=== PATIENT | male | born 1940 | race Caucasian/White ===

== ENCOUNTER 2022-04-21 02:56 | Inpatient (IN) | payer MEDICARE, SELFPAY ==
[2022-04-21] VITALS (15 sets, daily range): BP systolic 131–194; BP diastolic 44–99; PULSE 59–94; RESP 16–20; TEMP 36.1–37.9; O2SAT 88–100; BMI 27.5
--- NOTE | ~2022-04-21 | XR_ITS ---
EXAMINATION: XR chest 1V portable DATE: 04/21/2022 03:53 INDICATION: Weakness. TECHNIQUE: A single frontal view of the chest was obtained. COMPARISON: None. FINDINGS: Calcified bilateral lung nodules and calcified hilar and mediastinal lymph nodes are consis tent with old granulomatous disease. There are airspace opacities in right lower lung zone. No pleura l effusion or pneumothorax. The heart size is normal. There is a right internal jugular port with tip in superior vena cava. There are surgical clips in left neck. IMPRESSION: 1. Airspace opacities in right lower lung zone, consistent with atelectasis versus pneumonia. Reviewed, dictated and finalized at location A. IMPRESSION: 1. Airspace opacities in right lower lung zone, consistent with atelectasis dianne joshua pneumonia.
--- NOTE | 2022-04-21 02:59 | ECG_ITS ---
Measurements Intervals [place] Rate: 93 P: 62 IL: 207 QRS: 27 QRSD: 102 T: 81 QT: 325 QTc: 406 Interpretive Statements SINUS RHYTHM NONSPECIFIC ST & T-WAVE ABNORMALITY- LAT/HIGH LAT LEADS BASELINE ARTIFACT- I, II, III, AVR, AVL, AVF, V1-V6 BORDERLINE ECG NO PREVIOUS ECG AVAILABLE FOR COMPARISON Electronically Signed On 04-21-2022 8:31:26 CDT by Nolan Nobles D.O.
[2022-04-21 03:45] LABS: Basophils Percent Auto 0.3 % (0.2-1.2); Eosinophils Absolute Auto 0.1 K/mm3 (0-0.3); Eosinophils Percent Auto 0.7 % (0-4.4); Hematocrit 36.8 % (42.0-52.0); Hemoglobin 12.3 g/dL (14.0-18.0); Immature Granulocyte Absolute 0.03 K/mm3 (0.00-0.031); Immature Granulocyte Percent A 0.3 % (0-0.5); Lymphocytes Absolute Auto 0.69 K/mm3 (0.9-3.2); Lymphocytes Percent Auto 7.3 % (18.3-44.2); Mean Corpuscular HGB Conc 33.4 g/dl (32-36); Mean Corpuscular Hemoglobin 30.5 pg (26-34); Mean Corpuscular Volume 91.3 fl (80-100); Monocytes Absolute Auto 1.2 K/mm3 (0.1-0.6); Monocytes Percent Auto 12.9 % (2.6-8.5); Neutrophils Absolute Auto 7.4 K/mm3 (1.3-6.7); Neutrophils Percent Auto 78.5 % (45.5-73.1); Platelet Count Result 164 k/mm3 (150-375); Red Blood Count 4.03 M/mm3 (4.6-6.20); White Blood Count 9.4 K/mm3 (4.5-10.0)
[2022-04-21] MEDS: SODIUM CHLORIDE 0.9% IV 1,000 ML 999 ML IV CONT (03:48)
[2022-04-21 03:56] LABS: INR 1.1; Prothrombin Time 13.7 Seconds (11.1-14.7)
[2022-04-21 03:57] LABS: Partial Thromboplastin Time 28.2 SECONDS (22.3-36.8)
[2022-04-21 03:59] LABS: Alanine Aminotransferase 16 U/L (6-50); Alkaline Phosphatase 143 U/L (38-126); Anion Gap 9 mmol/L (8-16); Aspartate Amino Transferase 28 U/L (17-59); Bilirubin,Total 0.6 mg/dL (0.2-1.3); Blood Urea Nitrogen 34 mg/dL (9-20); Carbon Dioxide 27 mmol/L (22-30); Chloride 103 mmol/L (98-107); Estimated CRCL calculation 32 ml/min; Estimated Glomerular Filt Rate 42; Glucose 136 mg/dL (65-110); Potassium 4.6 mmol/L (3.4-5.0); Sodium 139 mmol/L (137-145)
[2022-04-21 04:19] LABS: Add Urine Microscopic? YES; Appearance Urine Clear (Clear); Bilirubin Urine Negative (Negative); Blood Urine 2+ (Negative); Color Urine Yellow (Yellow); Glucose Urine UA Negative (Negative); Ketones Urine 1+ mg/dL (Negative); Leukocyte Esterase Ur Negative LEU/UL (Negative); Nitrate Urine Negative (Negative); Protein Urine 3+ mg/dL (Negative)
[2022-04-21 04:22] LABS: SARS-CoV-2 RNA PCR Positive
--- NOTE | 2022-04-21 05:11 | PC.NURSE ---
Cyn Curry, granddaughter, would like to be notified with updates. # [phone]
--- NOTE | 2022-04-21 05:28 | ED.GENADULT ---
HPI - General Adult General Chief complaint: Altered Mental Status Stated complaint: weakness, confusion Time Seen by Provider: 04/21/22 03:03 History of Present Illness HPI narrative: Patient is an 81-year-old male who presents the ER with increased weakness and difficulty ambulating. Patient has dementia and lives at home with his family. Family reports he is not been able to walk like he typically can today and that he has increased tremors in his arms and legs and they do not feel like he can pick his legs up to walk. He has had slightly increased confusion but has dementia at baseline. No new runny nose or sore throat or cough. Family reports no infectious contacts. Related Data Allergies Allergy/AdvReac Type Severity Reaction Status Date / Time prochlorperazine Allergy Unknown Verified 04/21/22 03:16 Tetanus Vaccines and Toxoid Allergy Unknown Verified 04/21/22 02:58 Review of Systems Review of Systems: ROS unobtainable: Yes unobtainable due to mental status PMFSH Past Medical History Medical History (Updated 04/21/22 @ 05:41 by Jeffrey Marie MD) Bladder cancer Dementia Diabetes Giant cell arteritis Hyperlipidemia Hypertension Surgical History Surgical History (Updated 04/21/22 @ 05:41 by Jeffrey Marie MD) H/O cystoscopy Social History Social History (Updated 04/21/22 @ 05:40 by Jeffrey Marie MD) Smoking status: Former smoker Exam Narrative: GENERAL: Chronically ill-appearing, well-nourished, and in no acute distress. HEAD: Normocephalic, atraumatic. EYES: PERRL and EOMI. ENT: Mucous membranes moist. CHEST: Clear to auscultation. No respiratory distress. HEART: Regular rate and rhythm. Normal peripheral pulses. ABDOMEN: Soft, nontender, nondistended. EXTREMITIES: Normal range of motion. No edema. SKIN: Warm, dry, no rash. NEURO: No upper or lower extremity drift. Normal [id number] testing. Upper and lower extremity tremor. Alert and oriented x2. Course Course Emergency Course: Patient and family informed of results. Decadron for hypoxia. Admit to hospitalist service. Vital Signs Vital signs: Vital Signs Temperature 100.3 F H 04/21/22 03:00 Pulse Rate 94 04/21/22 03:00 Respiratory Rate 16 04/21/22 03:00 Blood Pressure 194/59 H 04/21/22 03:00 Pulse Oximetry 98 04/21/22 03:00 Oxygen Delivery Room Air 04/21/22 03:00 Temperature 100.3 F H 04/21/22 03:00 Pulse Rate 80 04/21/22 05:47 Respiratory Rate 20 04/21/22 05:47 Blood Pressure 156/62 H 04/21/22 05:47 Pulse Oximetry 97 04/21/22 05:47 Oxygen Delivery Nasal Cannula 04/21/22 05:07 Oxygen Flow Rate 2 04/21/22 05:07 Medical Decision Making Vital Signs Vital Signs: Vital Signs Temperature 100.3 F H 04/21/22 03:00 Pulse Rate 94 04/21/22 03:00 Respiratory Rate 16 04/21/22 03:00 Blood Pressure 194/59 H 04/21/22 03:00 Pulse Oximetry 98 04/21/22 03:00 Oxygen Delivery Room Air 04/21/22 03:00 Temperature 100.3 F H 04/21/22 03:00 Pulse Rate 80 04/21/22 05:47 Respiratory Rate 20 04/21/22 05:47 Blood Pressure 156/62 H 04/21/22 05:47 Pulse Oximetry 97 04/21/22 05:47 Oxygen Delivery Nasal Cannula 04/21/22 05:07 Oxygen Flow Rate 2 04/21/22 05:07 Lab Data Result diagrams: 04/21/22 03:37 04/21/22 03:37 Labs: Lab Results 04/21/22 04/21/22 04/21/22 Range/Units 03:37 03:37 03:37 WBC 9.4 (4.5-10.0) K/mm3 RBC 4.03 L (4.6-6.20) M/mm3 Hgb 12.3 L (14.0-18.0) g/dL Hct 36.8 L (42.0-52.0) % MCV 91.3 (80-100) fl MCH 30.5 (26-34) pg MCHC 33.4 (32-36) g/dl RDW 13.0 (11.5-14.5) % Plt Count 164 (150-375) k/mm3 MPV 11.0 H (7.4-10.4) fl Immature Gran % (Auto) 0.3 (0-0.5) % Neut % (Auto) 78.5 H (45.5-73.1) % Lymph % (Auto) 7.3 L (18.3-44.2) % [place] % (Auto) 12.9 H (2.6-8.5) % Eos % (Auto) 0.7 (0-4.4) % Baso % (Auto) 0.3 (0.2-1.
--- NOTE | 2022-04-21 08:05 | ADMGEN ---
This patient, Robert Finnegan, was admitted to Medical Room 245-. Patient/family oriented to hospital policies and general routines including ID bracelet, bed and alarms, visiting hours, pain management, procedures, bathroom and other care routines, personal items, smoking policy, room service/diet, and visiting hours. Information on how to activate the Rapid Response Team has been discussed. Patient/Family are encouraged to report perceived risks to care and to ask questions if they do not understand what they are told or what they should do.
[2022-04-21] MEDS: REMDESIVIR 200 MG/NS 250 ML 200 MG/250 ML BAG 250 MG IVPB (09:13)
--- NOTE | 2022-04-21 11:01 | PM.IMHP ---
H&P: HPI History of Present Illness Date/Time: 04/21/22 11:01 Chief Complaint: raj is an 81-year-old male who presents the ER with increased weakness and difficulty ambulating.? Patient has dementia and lives at home with his family.? Family reports he is not been able to walk like he typically can today and that he has increased tremors in his arms and legs and they do not feel like he can pick his legs up to walk.? He has had slightly increased confusion but has dementia at baseline.? No new runny nose or sore throat or cough.? Family reports no infectious contacts. [facility] Past Medical History Medical History (Updated 04/21/22 @ 11:03 by Madhav Ball MD) Bladder cancer Dementia Diabetes Giant cell arteritis Hyperlipidemia Hypertension Surgical History Surgical History H/O cystoscopy Family History Family History Mother Cancer Sibling CKD (chronic kidney disease) Father Emphysema lung Social History Social History Smoking status: Former smoker Alcohol intake: former Substance use: never Substance use type: does not use Spiritual care concerns: No Meds Home Medications and Allergies Home Medications Medication Instructions Recorded Confirmed Type amlodipine 5 mg tablet 5 mg PO DAILY 04/21/22 04/21/22 History atorvastatin 40 mg tablet 40 mg PO HS 04/21/22 04/21/22 History donepezil 10 mg tablet 10 mg PO HS 04/21/22 04/21/22 History enalapril maleate 20 mg tablet 20 mg PO DAILY 04/21/22 04/21/22 History hydrochlorothiazide 25 mg tablet 25 mg PO DAILY 04/21/22 04/21/22 History memantine 10 mg tablet 10 mg PO BID 04/21/22 04/21/22 History metformin 750 mg tablet,extended 750 mg PO DAILY 04/21/22 04/21/22 History release 24 hr pregabalin 75 mg capsule 75 mg PO QAM AND QHS 04/21/22 04/21/22 History umeclidinium 62.5 mcg/actuation 1 inh inhalation BID 04/21/22 04/21/22 History blister powder for inhalation (Incruse Ellipta) Allergies Allergy/AdvReac Type Severity Reaction Status Date / Time prochlorperazine Allergy Unknown Verified 04/21/22 08:14 Tetanus Vaccines and Toxoid Allergy Unknown Verified 04/21/22 08:14 Vital Signs Vital Signs - 24 hr 04/21/22 03:00 04/21/22 03:18 04/21/22 04:47 Temperature 100.3 F H Pulse Rate 94 85 Respiratory Rate 16 20 Blood Pressure 194/59 H 172/79 H 131/99 H Pulse Oximetry 98 Oxygen Delivery Room Air Oxygen Flow Rate 04/21/22 05:02 04/21/22 05:07 04/21/22 05:16 Temperature Pulse Rate 86 Respiratory Rate 18 Blood Pressure 155/58 H Pulse Oximetry 88 L 92 96 Oxygen Delivery Nasal Cannula Oxygen Flow Rate 2 04/21/22 05:47 04/21/22 07:54 04/21/22 08:38 Temperature Pulse Rate 80 77 Respiratory Rate 20 18 18 Blood Pressure 156/62 H 158/46 H Pulse Oximetry 97 92 92 Oxygen Delivery Nasal Cannula Oxygen Flow Rate 2 04/21/22 10:47 Temperature 97.1 F L Pulse Rate 65 Respiratory Rate 18 Blood Pressure 158/49 H Pulse Oximetry 96 Oxygen Delivery Oxygen Flow Rate H&P: Results Labs Labs: Short CBC 04/21/22 Range/Units 03:37 WBC 9.4 (4.5-10.0) K/mm3 Hgb 12.3 L (14.0-18.0) g/dL Hct 36.8 L (42.0-52.0) % Plt Count 164 (150-375) k/mm3 BMP 04/21/22 03:37 Sodium 139 Potassium 4.6 Chloride 103 Carbon Dioxide 27 BUN 34 H Creatinine 1.60 H Glucose 136 H Calcium 9.0 Liver Function 04/21/22 Range/Units 03:37 Total Bilirubin 0.6 (0.2-1.3) mg/dL AST 28 (17-59) U/L ALT 16 (6-50) U/L Alkaline Phosphatase 143 H (38-126) U/L Albumin 4.0 (3.5-5.1) g/dL Urine 04/21/22 Range/Units 04:11 Urine Color Yellow (Yellow) Urine Appearance Clear (Clear) Urine pH 6.0 (5.0-9.0) Ur Specific [place] 1.020 (1.001-1.035) Urine Protein 3+ H (
[2022-04-21] MEDS: hydroCHLOROthiazide 25 MG TABLET PO (11:44)
[2022-04-21] MEDS: PREGABALIN (*CRX) 75 MG CAPSULE PO ×2 (11:44→21:23)
[2022-04-21] MEDS: MEMANTINE 10 MG TABLET PO ×2 (11:44→21:23)
[2022-04-21] MEDS: metFORMIN HCL XR 500 MG TAB.SR.24H PO (11:46)
[2022-04-21] MEDS: amLODIPine BESYLATE 5 MG TABLET PO (11:47)
[2022-04-21] MEDS: ENALAPRIL MALEATE 10 MG TABLET 20 MG PO (11:47)
[2022-04-21 12:01] LABS: Glucose Point of Care 240 mg/dl (65-105)
[2022-04-21] MEDS: INSULIN ASPART (*BKC) 100 UNITS/ML SUB-Q ×2 (12:08→16:51)
[2022-04-21] MEDS: UMECLIDINIUM BROMIDE 62.5 MCG ELLIPTA 1 PUFF INHALATION (12:20)
[2022-04-21 16:50] LABS: Glucose Point of Care 203 mg/dl (65-105)
[2022-04-21 19:55] LABS: Glucose Point of Care 193 mg/dl (65-105)
[2022-04-21] MEDS: DONEPEZIL HCL 10 MG TABLET PO (21:23)
[2022-04-21] MEDS: ATORVASTATIN 40 MG TABLET PO (21:23)
[2022-04-22] VITALS (8 sets, daily range): BP systolic 131–151; BP diastolic 49–69; PULSE 54–97; RESP 16–20; TEMP 36.3–36.6; O2SAT 90–100
[2022-04-22 05:23] LABS: Basophils Percent Auto 0.2 % (0.2-1.2); Hematocrit 32.1 % (42.0-52.0); Hemoglobin 10.7 g/dL (14.0-18.0); Immature Granulocyte Absolute 0.02 K/mm3 (0.00-0.031); Immature Granulocyte Percent A 0.3 % (0-0.5); Lymphocytes Absolute Auto 0.68 K/mm3 (0.9-3.2); Lymphocytes Percent Auto 10.7 % (18.3-44.2); Mean Corpuscular HGB Conc 33.3 g/dl (32-36); Mean Corpuscular Hemoglobin 30.3 pg (26-34); Mean Corpuscular Volume 90.9 fl (80-100); Mean Platelet Volume 11.1 fl (7.4-10.4); Monocytes Percent Auto 15.8 % (2.6-8.5); Neutrophils Absolute Auto 4.6 K/mm3 (1.3-6.7); Platelet Count Result 155 k/mm3 (150-375); Red Blood Count 3.53 M/mm3 (4.6-6.20); Red Cell Distribution Width 12.7 % (11.5-14.5); White Blood Count 6.3 K/mm3 (4.5-10.0)
[2022-04-22 05:34] LABS: INR 1.1; Prothrombin Time 13.9 Seconds (11.1-14.7)
[2022-04-22 05:39] LABS: Alanine Aminotransferase 13 U/L (6-50); Anion Gap 5 mmol/L (8-16); Blood Urea Nitrogen 38 mg/dL (9-20); Calcium 7.9 mg/dL (8.4-10.2); Carbon Dioxide 26 mmol/L (22-30); Chloride 103 mmol/L (98-107); Estimated CRCL calculation 34 ml/min; Estimated Glomerular Filt Rate 45; Glucose 155 mg/dL (65-110); Potassium 4.1 mmol/L (3.4-5.0); Sodium 134 mmol/L (137-145)
[2022-04-22] MEDS: ENALAPRIL MALEATE 10 MG TABLET 20 MG PO (08:19)
[2022-04-22] MEDS: hydroCHLOROthiazide 25 MG TABLET PO (08:19)
[2022-04-22] MEDS: PREGABALIN (*CRX) 75 MG CAPSULE PO ×2 (08:19→21:03)
[2022-04-22] MEDS: amLODIPine BESYLATE 5 MG TABLET PO (08:19)
[2022-04-22] MEDS: metFORMIN HCL XR 500 MG TAB.SR.24H PO (08:19)
[2022-04-22] MEDS: MEMANTINE 10 MG TABLET PO ×2 (08:19→21:03)
[2022-04-22] MEDS: UMECLIDINIUM BROMIDE 62.5 MCG ELLIPTA 1 PUFF INHALATION (08:26)
[2022-04-22 08:29] LABS: WBC Urine 0-3 /hpf (0-3)
[2022-04-22 08:30] LABS: Bacteria Urine 1+ /hpf; Mucus Urine Moderate /lpf
[2022-04-22 08:31] LABS: Glucose Point of Care 116 mg/dl (65-105)
[2022-04-22] MEDS: REMDESIVIR 100 MG/NS 250 ML 100 MG/250 ML BAG 250 MG IVPB (09:01)
--- NOTE | 2022-04-22 11:25 | PCOTNOTE ---
Attempted to see patient however patient is asleep at this time.
[2022-04-22] MEDS: INSULIN ASPART (*BKC) 100 UNITS/ML SUB-Q ×2 (12:08→17:17)
[2022-04-22 12:11] LABS: Glucose Point of Care 275 mg/dl (65-105)
--- NOTE | 2022-04-22 13:42 | PM.IMPN ---
Progress Note: A&P Assessment and Plan (1) COVID: Code(s): U07.1 - COVID-19 Status: Acute Assessment and Plan: Continue oxygen. Continue dexamethasone and remdesivir. Relatively asymptomatic 03/22/2022 interval history: 81-year-old male was brought by family the complaint of weakness and tremor and difficulty ambulation patient is found to have a COVID-19, is being treated dexamethasone and remdesivir, upon arrival patient was requiring 2L of oxygen currently on room air, patient tremor has resolved, his clinically stage will have a PT OT evaluate the patient, patient will benefit with physical therapy rehab. (2) Hypoxia: Code(s): R09.02 - Hypoxemia Status: Acute Assessment and Plan: Mild hypoxia secondary to above (3) Hypertension: Code(s): I10 - Essential (primary) hypertension Status: Acute Assessment and Plan: Continue home meds (4) Alzheimer's dementia: Code(s): G30.9 - Alzheimer's disease, unspecified; F02.80 - Dementia in other diseases classified elsewhere without behavioral disturbance Status: Acute Assessment and Plan: Continue home meds (5) Diabetes: Code(s): E11.9 - Type 2 diabetes mellitus without complications Status: Acute Assessment and Plan: Monitor blood sugar, sliding scale insulin (6) Hyperlipidemia: Code(s): E78.5 - Hyperlipidemia, unspecified Status: Acute Subjective Date/time seen: 04/22/22 13:42 HPI-Patient is an 81-year-old male who presents the ER with increased weakness and difficulty ambulating.? Patient has dementia and lives at home with his family.? Family reports he is not been able to walk like he typically can today and that he has increased tremors in his arms and legs and they do not feel like he can pick his legs up to walk.? He has had slightly increased confusion but has dementia at baseline.? No new runny nose or sore throat or cough.? Family reports no infectious contacts. 03/22/2022 interval history: 81-year-old male was brought by family the complaint of weakness and tremor and difficulty ambulation patient is found to have a COVID-19, is being treated dexamethasone and remdesivir, upon arrival patient was requiring 2L of oxygen currently on room air, patient tremor has resolved, his clinically stage will have a PT OT evaluate the patient, patient will benefit with physical therapy rehab Review of Systems Review of Systems: as per HPI Exam Narrative: elderly frail Patient is comfortable, NAD HEENT: eyes are clear and none icteric LUNGS: normal respiratory effort ABD: not distended Lower extremities: no edema SKIN: nonjaundiced Neuro: grossly intact. Objective Data Vital Signs Vital Signs: Vital Signs - 24 hr 04/21/22 14:15 04/21/22 18:34 04/21/22 20:27 Temperature 97.0 F L 97.3 F L 98.5 F Pulse Rate 63 59 L 60 Respiratory Rate 18 18 20 Blood Pressure 146/71 H 146/45 H 153/44 H Pulse Oximetry 96 96 100 Oxygen Delivery Oxygen Flow Rate 04/21/22 21:00 04/22/22 00:26 04/22/22 05:57 Temperature 97.6 F 97.6 F Pulse Rate 58 L 60 Respiratory Rate 20 20 Blood Pressure 143/52 H 151/49 H Pulse Oximetry 100 97 94 Oxygen Delivery Nasal Cannula Oxygen Flow Rate 1 04/22/22 07:22 04/22/22 08:27 04/22/22 08:25 Temperature Pulse Rate Respiratory Rate Blood Pressure Pulse Oximetry 90 Oxygen Delivery Room Air Room Air Room Air Oxygen Flow Rate 04/22/22 10:08 Temperature 97.8 F Pulse Rate 97 Respiratory Rate 18 Blood Pressure 141/62 H Pulse Oximetry 100 Oxygen Delivery Oxygen Flow Rate Intake/Output Intake/Output: Intake & Output 04/19/22 04/20/22 04/21/22 04/22/22 23:59 23:59 23:59 23:59 Intake Total 2630 970 Output Total 900 1075 Balance 1730 -105 Meds/Results Medications: Active Medications Generic Name Dose Route Start Last Admin Trade Name Freq PRN Reason Stop Dose Ad
[2022-04-22 17:19] LABS: Glucose Point of Care 219 mg/dl (65-105)
[2022-04-22] MEDS: DONEPEZIL HCL 10 MG TABLET PO (21:03)
[2022-04-22] MEDS: ATORVASTATIN 40 MG TABLET PO (21:03)
[2022-04-22 21:24] LABS: Glucose Point of Care 205 mg/dl (65-105)
[2022-04-23 00:30] VITALS: BP 158/58; PULSE 56; RESP 16; TEMP 36.4; O2SAT 94
[2022-04-23 05:22] LABS: Alanine Aminotransferase 16 U/L (6-50); Estimated CRCL calculation 37 ml/min; Estimated Glomerular Filt Rate 49
[2022-04-23 05:32] LABS: INR 1.1; Prothrombin Time 13.9 Seconds (11.1-14.7)
[2022-04-23 06:00] VITALS: BP 136/50; PULSE 56; RESP 18; TEMP 36.6; O2SAT 94
[2022-04-23 08:14] LABS: Glucose Point of Care 125 mg/dl (65-105)
[2022-04-23] MEDS: UMECLIDINIUM BROMIDE 62.5 MCG ELLIPTA 1 PUFF INHALATION (08:27)
[2022-04-23 08:28] VITALS: O2SAT 96
[2022-04-23] MEDS: PREGABALIN (*CRX) 75 MG CAPSULE PO (09:25)
[2022-04-23] MEDS: metFORMIN HCL XR 500 MG TAB.SR.24H PO (09:26)
[2022-04-23] MEDS: amLODIPine BESYLATE 5 MG TABLET PO (09:26)
[2022-04-23] MEDS: MEMANTINE 10 MG TABLET PO (09:26)
[2022-04-23] MEDS: ENALAPRIL MALEATE 10 MG TABLET 20 MG PO (09:33)
[2022-04-23] MEDS: REMDESIVIR 100 MG/NS 250 ML 100 MG/250 ML BAG 250 MG IVPB (09:34)
[2022-04-23] MEDS: hydroCHLOROthiazide 25 MG TABLET PO (09:34)
[2022-04-23 10:00] VITALS: BP 138/58; PULSE 56; RESP 18; TEMP 36.4; O2SAT 97
--- NOTE | 2022-04-23 11:30 | PM.DS ---
DS: Admitting Diagnosis Discharge Date April 23, 2022 Admitting Diagnosis COVID pneumonia DS: Discharge Diagnosis Discharge Diagnosis (1) COVID: Code(s): U07.1 - COVID-19 Status: Acute Assessment and Plan: patient did well on dexamethasone and remdesivir. No longer requiring oxygen. (2) Hypoxia: Code(s): R09.02 - Hypoxemia Status: Acute Assessment and Plan: No longer requiring oxygen (3) Hypertension: Code(s): I10 - Essential (primary) hypertension Status: Acute Assessment and Plan: Continue home meds (4) Alzheimer's dementia: Code(s): G30.9 - Alzheimer's disease, unspecified; F02.80 - Dementia in other diseases classified elsewhere without behavioral disturbance Status: Acute Assessment and Plan: Continue home meds (5) Diabetes: Code(s): E11.9 - Type 2 diabetes mellitus without complications Status: Acute Assessment and Plan: Monitor blood sugar, sliding scale insulin (6) Hyperlipidemia: Code(s): E78.5 - Hyperlipidemia, unspecified Status: Acute DS: Summary Hospital Course Hospital Course: patient is a 81-year-old male who came in with shortness of breath and hypoxia was found have COVID pneumonia. He was started on dexamethasone remdesivir and did well. He was initially on supplemental oxygen but over the last 24hours she has not required any oxygen. Patient can be discharged home on dexamethasone. He needs to follow up with his primary care physician in 1-2 weeks. Time Spent with Patient Time attestation: Total time spent providing and/or coordinating discharge services: Exam Narrative: elderly frail Patient is comfortable, NAD HEENT: eyes are clear and none icteric LUNGS: normal respiratory effort ABD: not distended Lower extremities: no edema SKIN: nonjaundiced Neuro: grossly intact. DS: Data Data Completed and Pending Labs on day of discharge: Labs from last 24 hours 04/23/22 04/23/22 04/23/22 08:10 04:47 04:47 PT 13.9 INR 1.1 Creatinine 1.40 H Estim Creat Clear Calc 37 Estimated GFR 49 L POC Capillary Glucose 125 H ALT 16 04/22/22 04/22/22 04/22/22 21:19 17:14 12:06 PT INR Creatinine Estim Creat Clear Calc Estimated GFR POC Capillary Glucose 205 H 219 H 275 H ALT Discharge Plan Discharge Attending physician on discharge: Madhav Ball Discharging Clinician: Madhav Ball Patient Disposition: Home, Self-Care Activity: no preference Diet: as tolerated Patient Instructions: Antibiotic Form Stand Alone Forms: General Discharge Information Follow-up/Referrals: Alvino,Jason Shrestha MD [Primary Care Provider] - Discharge Medications: New dexamethasone 4 mg tablet 4 mg PO DAILY Qty: 5 0RF Continued atorvastatin 40 mg Tablet 40 mg PO HS enalapril maleate 20 mg Tablet 20 mg PO DAILY donepezil 10 mg Tablet 10 mg PO HS amlodipine 5 mg Tablet 5 mg PO DAILY hydrochlorothiazide 25 mg Tablet 25 mg PO DAILY metformin 750 mg Tablet Extended Release 24 Hr 750 mg PO DAILY memantine 10 mg Tablet 10 mg PO BID pregabalin 75 mg Capsule 75 mg PO QAM AND QHS Incruse Ellipta 62.5 mcg/actuation Blister With Device 1 inh INHALATION BID Date of admission: 04/21/22 06:39 Primary Care Provider: AlvinoJason Admitting Provider: Sheela Le Attending physician on admission: Sheela Le Condition: Stable
[2022-04-23 11:58] LABS: Glucose Point of Care 254 mg/dl (65-105)
[2022-04-23 13:04] LABS: Glucose Point of Care 234 mg/dl (65-105)
[2022-04-23] MEDS: INSULIN ASPART (*BKC) 100 UNITS/ML SUB-Q (13:06)
== END 2022-04-23 13:45 | disposition home or self-care (01) | DRG 177 ==
LOC: ANHED 05:38 → ANH2MED 07:39
PROVIDERS: Admitting Provider Internal Medicine; Emergency Provider Emergency Medicine; PCP Family Medicine; Visit Provider Chiropractor
DX: U07.1 COVID-19 (principal); J12.82 Pneumonia due to coronavirus disease 2019; G30.9 Alzheimer's disease, unspecified; F02.80 Dementia in other diseases classified elsewhere, unspecified severity, without behavioral disturbance, psychotic disturbance, mood disturbance, and anxiety; E11.9 Type 2 diabetes mellitus without complications; E78.5 Hyperlipidemia, unspecified; I10 Essential (primary) hypertension; R09.02 Hypoxemia; R25.1 Tremor, unspecified; Z85.51 Personal history of malignant neoplasm of bladder; Z87.891 Personal history of nicotine dependence; Z79.84 Long term (current) use of oral hypoglycemic drugs
CPT/HCPCS: 36415; 51701; 71045; 80048; 80053; 81001; 82565; 82948; 84460; 85025; 85610; 85730; 93005; 94640; 96361; 96374; 97161; 97165; 99285; A9270; C9803; J0248; J1100; J1815; J7030; U0003; U0005